=== PATIENT | male | born 1945 | race Caucasian/White ===

== ENCOUNTER → 2017-02-21 | Outpatient (CLI) | payer OTHER ==
[~2017-02-21] MED LIST: AMLO5TAB2 PO; ASPI-496 PO; ATOR40TA78 PO; ESCI10TA PO; HYDR25TA6 PO; LISI-170 PO; METF500T4 PO; OMEP20TA62 PO
[2017-02-21 11:21] LABS: PATH.CAST-FLAG NOT PRESENT; SPERM-FLAG NOT PRESENT; SRC-FLAG NOT PRESENT; XTAL-FLAG NOT PRESENT; YLC-FLAG NOT PRESENT
[2017-02-21 11:30] LABS: ASPARTATE AMINO TRANSFERASE 22 U/L (15-37); BLOOD UREA NITROGEN 19 mg/dL (7-18)
[2017-02-21 11:51] LABS: HEMATOCRIT 47.7 % (39.2-51.8); HEMOGLOBIN 16.1 g/dL (13.7-18.0); WHITE BLOOD COUNT 7.3 x10^3/uL (3.4-10)
== END | disposition home or self-care (01) ==
LOC: MERGE 10:00 → STAR 10:04
PROVIDERS: ATTEND Urology
DX: Z01.818 Encounter for other preprocedural examination (principal); R94.31 Abnormal electrocardiogram [ECG] [EKG]; C61 Malignant neoplasm of prostate; R82.99 Other abnormal findings in urine
CPT/HCPCS: 36415; 80053; 81003; 85025; 87086; 93005

== ENCOUNTER → 2019-04-24 | Outpatient (CLI) | payer MEDICARE ==
[~2019-04-24] MED LIST changes: +AMLO-150 PO; -AMLO5TAB2 PO; +GADOTERATE 10 MMOL/20 ML SYR ONE; +HYDR-3240 PO; +METF500T17 PO; -METF500T4 PO
== END | disposition home or self-care (01) ==
LOC: CFH 12:39
PROVIDERS: ATTEND Urology
DX: C79.51 Secondary malignant neoplasm of bone (principal)
CPT/HCPCS: 72158 ×2; A9575